=== PATIENT | male | born 1965 | race Hispanic/Latino ===

== ENCOUNTER 2021-11-25 08:32 | Outpatient (CLI) | payer BC ==
[2021-11-25] MEDS ORDERED: Iopamidol 370 76% 100 ML VIAL ONE (15:43)
== END 2021-11-25 08:33 | disposition home or self-care (01) ==
LOC: CSHCT 08:32
PROVIDERS: ATTEND Urology
DX: N40.1 Benign prostatic hyperplasia with lower urinary tract symptoms (principal); R31.0 Gross hematuria
CPT/HCPCS: 74178; Q9967